=== PATIENT | male | born 1980 | race Caucasian/White ===

== ENCOUNTER 2019-05-03 19:02 | Emergency (ER) | payer MEDICAID ==
[~2019-05-03] VITALS: Ht 162.6 cm; Wt 78.5 kg
[2019-05-03 19:26] VITALS: Ht 162.6 cm; Wt 78.5 kg
[2019-05-03 21:04] VITALS: BP 123/73
== END 2019-05-03 21:04 | disposition home or self-care (01) ==
LOC: ED 19:02
DX: S22.31XA Fracture of one rib, right side, initial encounter for closed fracture (principal); W17.89XA Other fall from one level to another, initial encounter; Y93.89 Activity, other specified; Y92.89 Other specified places as the place of occurrence of the external cause; Y99.8 Other external cause status
CPT/HCPCS: J1885